=== PATIENT | female | born 1965 | race African-American/Black ===

== ENCOUNTER 2016-10-19 13:32 | Emergency (ER) | payer OTHER ==
[2016-10-19 14:56] LABS: MCHC 32.9 g/dl (32.0-36.0); MEAN CELL VOLUME 103.4 fl (80-96); PLATELET COUNT 155 K/MM3 (134-434); RDW 14.3 % (11.6-15.6); WHITE BLOOD COUNT 4.6 K/mm3 (4.0-10.0)
[2016-10-19 15:20] VITALS: TEMP 97.8; BMI 25.4
[2016-10-19 15:34] LABS: PLATELET ESTIMATE ADEQUATE (NORMAL)
[2016-10-19 15:36] LABS: URINE MARIJUANA THC NEGATIVE ng/ml (CUTOFF=50)
--- NOTE | 2016-10-19 15:38 | PDOC ---
History of Present Illness - History of Present Illness Initial Comments: 10/19/16 15:42 The patient is a 50 year old female with a past medical hx of asthma, anemia, hypercholesteremia, anxiety who presents to the ED via EMS for evaluation of a possible cocaine overdose. Per EMS, patient was found unresponsive this morning and her family called EMS. The family reports the patient used cocaine last night. EMS states patient was found awake, alert, and responsive on the scene. Patient states she woke up at 0930 this morning and went to get dressed. She reports she remembers having a headache, and that was the last thing she remembers. The patient states she has no complaints at this time and feels fine. The patient denies chest pain, SOB The patient denies fever, chills The patient denies nausea, vomiting, diarrhea Allergies: NKDA Surgical: Gastric bypass, cholecystectomy PCP: Dr. Tala Almeida <Glenda Groves - Last Filed: 10/19/16 15:45> - General History Source: Patient, EMS, Family Exam Limitations: No Limitations <Jena Loya - Last Filed: 10/22/16 10:31> - General Chief Complaint: Substance Abuse Stated Complaint: SYNCOPE Time Seen by Provider: 10/19/16 13:56 Past History <Glenda Groves - Last Filed: 10/19/16 15:45> - Past Medical History Anemia: Yes Asthma: Yes Cancer: No Cardiac Disorders: No CVA: No COPD: No CHF: No Dementia: No Diabetes: No GI Disorders: No Disorders: No HTN: No Hypercholesterolemia: Yes Kidney Stones: No Liver Disease: No Psychiatric Problems: Yes (ANXIETY. DEPRESSION. SUBSTANCE ABUSE.) Suicide Attempt (Hx): No Seizures: Yes Thyroid Disease: No - Surgical History Abdominal Surgery: Yes (GASTRIC BYPASS SX 2001) Appendectomy: No Cardiac Surgery: No Cholecystectomy: Yes () Lung Surgery: No Neurologic Surgery: No Orthopedic Surgery: No - Reproductive History PID: No - Immunization History Immunization Up to Date: Yes - Psycho/Social/Smoking Cessation Hx Anxiety: Yes Suicidal Ideation: No Smoking Status: Yes Smoking History: Current every day smoker Have you smoked in the past 12 months: Yes Number of Cigarettes Smoked Daily: 3 Cigars Per Day: 0 Information on smoking cessation initiated: No 'Breaking Loose' booklet given: 03/10/16 Hx Alcohol Use: No Drug/Substance Use Hx: No Substance Use Type: Alcohol Hx Substance Use Treatment: Yes (IN/OUTPT) <Jena Loya - Last Filed: 10/22/16 10:31> - Past Medical History Allergies/Adverse Reactions: Allergies Allergy/AdvReac Type Severity Reaction Status Date / Time No Known Allergies Allergy Verified 10/19/16 15:15 Home Medications: Ambulatory Orders Gabapentin [Neurontin -] 300 mg PO BID 04/28/15 Albuterol Sulfate Inhaler - [Ventolin HFA Inhaler -] 2 inh PO Q4H PRN 07/15/15 Escitalopram Oxalate [Lexapro -] 20 mg PO DAILY #30 tablet 07/17/15 Quetiapine Fumarate [Seroquel -] 300 mg PO HS #30 tablet 07/17/15 Topiramate [Topamax -] 100 mg PO BID #60 tablet 07/17/15 Zolpidem Tartrate [Ambien] 10 mg PO HS #14 tablet 11/09/15 Cyclobenzaprine HCl [Flexeril -] 10 mg PO TID PRN 04/01/16 Nitrofurantoin Monohyd/M-Cryst [Macrobid -] 100 mg PO BID #14 capsule 07/15/16 Review of Systems - Review of Systems Able to Perform ROS?: Yes Comments:: 10/19/16 15:42 GENERAL/CONSTITUTIONAL: No: fever, chills, weakness, loss of appetite. HEAD, EYES, EARS, NOSE AND THROAT: No: change in vision, ear pain, discharge, sore throat, throat swelling. CARDIOVASCULAR: No: chest pain, lightheadedness, palpitations, syncope RESPIRATORY: No: cough, shortness of breath, wheezing, hemoptysis, stridor. GASTROINTESTINAL: No: nausea, vomiting, abdominal cramping, diarrhea, rectal bleeding, constipation. GENITOURINARY: No: dysuria, hematuria, frequency, urgency, flank pain. MUSCULOSKELETAL: No: back pain, neck pain, joint pain, muscle swelling or pain SKIN: No: lesions, pallor, rash or easy bruising. NEUROLOGIC: No: headache, vertigo, paresthesias, weakness <Glenda Groves - Last Filed: 10/19/16 15:45> *Physical Exam - Vital Signs Last Vital Signs Temp Pulse Resp BP Pulse Ox 97.8 F 108 H 16 114/85 100 10/19/16 13:38 10/19/16 13:38 10/19/16 13:38 10/19/16 13:38 10/19/16 13:38 - Physical Exam Comments: 10/19/16 15:43 GENERAL: The patient is in no acute distress. HEAD: Normal with no signs of trauma. EYES: PERRLA, EOMI, sclera anicteric, conjunctiva clear. ENT: Ears normal, nares patent, oropharynx clear without exudates. Moist mucous membranes. NECK: Normal range of motion, supple without lymphadenopathy, JVD, or masses. LUNGS: Breath sounds equal, clear to auscultation bilaterally. No wheezes, and no crackles. HEART:Regular rate and rhythm, normal S1 and S2 without murmur, rub or gallop. ABDOMEN: Soft, nontender, normoactive bowel sounds. No guarding, no rebound. EXTREMITIES: Normal range of motion, no edema. No clubbing or cyanosis. No erythema, or tenderness. NEUROLOGICAL: Cranial nerves II through XII grossly intact. Normal speech. No focal neurological deficits. MUSCULOSKELETAL: Back nontender to palpation, no CVA tenderness SKIN: Warm, Dry, normal turgor, no rashes or lesions noted. <Glenda Groves - Last Filed: 10/19/16 15:45> - Vital Signs Last Vital Signs Temp Pulse Resp BP Pulse Ox 97.8 F 108 H 16 114/85 100 10/19/16 13:38 10/19/16 13:38 10/19/16 13:38 10/19/16 13:38 10/19/16 13:38 <Jena Loya - Last Filed: 10/22/16 10:31> Heart Score/ECG Review #1 ECG reviewed & interpreted by me at: 15:49 10/19/16 15:49 Twelve-lead EKG was performed and reviewed by me. There is normal sinus rhythm with a tachycardiac rate 114ms. The axis is normal. The intervals are normal - pr:162ms, QRS:76ms, QTc:482ms. There are no ST elevations or depressions. T waves nml <Jena Loya - Last Filed: 10/22/16 10:31> ED Treatment Course - LABORATORY CBC & Chemistry Diagram: 10/19/16 14:30 10/19/16 14:30 - ADDITIONAL ORDERS Additional order review: Laboratory Results 10/19/16 10/19/16 10/19/16 14:30 14:30 14:30 Sodium Cancelled Potassium Cancelled Chloride Cancelled Carbon Dioxide Cancelled Anion Gap Cancelled BUN Cancelled Creatinine Cancelled Creat Clearance w eGFR Cancelled Random Glucose Cancelled Calcium Cancelled Total Bilirubin Cancelled AST Cancelled ALT Cancelled Alkaline Phosphatase Cancelled Creatine Kinase Cancelled Troponin I Cancelled Total Protein Cancelled Albumin Cancelled Opiates Screen Negative Methadone Screen Negative Barbiturate Screen Negative Phencyclidine Screen Negative Ur Amphetamines Screen Negative MDMA (Ecstasy) Screen Negative Benzodiazepines Screen Negative Cocaine Screen Positive U Marijuana (THC) Screen Negative Alcohol, Quantitative 194.1 H* 10/19/16 14:30 RBC 3.94 MCV 103.4 H MCHC 32.9 RDW 14.3 MPV 9.0 Neutrophils % 27.0 L D Lymphocytes % 60.0 H Monocytes % 5.0 <Glenda Groves - Last Filed: 10/19/16 15:45> - LABORATORY CBC & Chemistry Diagram: 10/19/16 14:30 10/19/16 16:49 - ADDITIONAL ORDERS Additional order review: Laboratory Results 10/19/16 10/19/16 10/19/16 14:30 14:30 14:30 Sodium Cancelled Potassium Cancelled Chloride Cancelled Carbon Dioxide Cancelled Anion Gap Cancelled BUN Cancelled Creatinine Cancelled Creat Clearance w eGFR Cancelled Random Glucose Cancelled Calcium Cancelled Total Bilirubin Cancelled AST Cancelled ALT Cancelled Alkaline Phosphatase Cancelled Creatine Kinase Cancelled Troponin I Cancelled Total Protein Cancelled Albumin Cancelled Opiates Screen Negative Methadone Screen Negative Barbiturate Screen Negative Phencyclidine Screen Negative Ur Amphetamines Screen Negative MDMA (Ecstasy) Screen Negative Benzodiazepines Screen Negative U Marijuana (THC) Screen Negative Alcohol, Quantitative 194.1 H* 10/19/16 14:30 RBC 3.94 MCV 103.4 H MCHC 32.9 RDW 14.3 MPV 9.0 Neutrophils % 27.0 L D Lymphocytes % 60.0 H Monocytes % 5.0 <Jena Loya - Last Filed: 10/22/16 10:31> Medical Decision Making - Medical Decision Making 10/19/16 15:37 A portion of this note was documented by scribe services under my direction. I have reviewed the details of the note, within reason, and agree with the documentation with the following case summary and management plan written by me. Nursing documentation reviewed and incorporated into medical decision making 10/19/16 15:51 This is a 50 yo F with a history of chronic back pain, h/o anemia who presents to the ER via EMS Call from family was due to difficulty arousing patient and concern about "Cardiac arrest" Upon EMS arrival, pt was not in cardiac arrest Pt was sleeping Per family members, pt had done cocaine last night Pt denies using cocaine, states that IF she had cocaine, it was slipped into something she ate Pt has no complaints now Does complain of her chronic joint pain Pt denies trauma Pt states she had 1/2 of a beer today Will do: EKG Labs Will continuously monitor Pt requesting something to eat (tolerated sandwich, requesting something better) 10/19/16 16:01 Laboratory Tests 10/19/16 10/19/16 10/19/16 14:30 14:30 14:30 WBC 4.6 Hgb 13.4 Hct 40.7 Plt Count 155 Neutrophils % 27.0 L D Lymphocytes % 60.0 H Monocytes % 5.0 Reactive Lymphocytes 8 Macrocytosis 3+ Cocaine Screen Positive Alcohol, Quantitative 194.1 H* Chemistries hemolyzed Resent Pt signed out to Dr Haile <Jena Loya - Last Filed: 10/22/16 10:31> *DC/Admit/Observation/Transfer - Attestations Scribe Attestion: 10/19/16 15:43 Documentation prepared by Glenda Groves, acting as medical artist for Jena Loya MD/. <Glenda Groves - Last Filed: 10/19/16 15:45> <Jena Loya - Last Filed: 10/22/16 10:31> Diagnosis at time of Disposition: Alcohol intoxication - Discharge Dispostion Disposition: AGAINST MEDICAL ADVICE Condition at time of disposition: Stable - Referrals Referrals: Lindsey Almeida MD [Primary Care Provider] -
--- NOTE | 2016-10-19 16:07 | EKG ---
Test Reason : Blood Pressure : / mmHG Vent. Rate : 114 BPM Atrial Rate : 114 BPM P-R Int : 162 ms QRS Dur : 076 ms QT Int : 350 ms P-R-T Axes : 063 038 051 degrees QTc Int : 482 ms SINUS TACHYCARDIA POSSIBLE LEFT ATRIAL ENLARGEMENT SEPTAL INFARCT (CITED ON OR BEFORE 15-JUL-2016) ABNORMAL ECG WHEN COMPARED WITH ECG OF 15-JUL-2016 19:15, NO SIGNIFICANT CHANGE WAS FOUND Confirmed by RICARDO THRASHER MD ([id number]) on 10/19/2016 4:07:10 PM Referred By: Confirmed By:RICARDO THRASHER MD
[2016-10-19 16:51] VITALS: BP 115/87; PULSE 91
[2016-10-19] MEDS ORDERED: IBUPROFEN 800 MG/8 ML IJ IVPB ONE (17:04)
[2016-10-19] MEDS ORDERED: IBUPROFEN 600 MG TABLET (FP) PO ONE (17:13)
[2016-10-19 19:00] LABS: ALBUMIN 3.3 g/dl (3.4-5.0); ANION GAP 12 (8-16); CALCIUM 8.1 mg/dL (8.5-10.1); CO2 19 mmol/L (21-32); GLUCOSE,RANDOM 208 mg/dL (74-106)
[2016-10-19 19:06] LABS: ALK PHOS 171 U/L (45-117); BILIRUBIN,TOTAL 0.3 mg/dL (0.2-1.0); CREATININE 0.8 mg/dL (0.55-1.02); SGOT/AST 273 U/L (15-37); SGPT/ALT 171 U/L (12-78); TROPONIN I < 0.02 ng/ml (0.00-0.05)
--- NOTE | 2016-10-19 19:59 | PDOC ---
*Physical Exam - Vital Signs Last Vital Signs Temp Pulse Resp BP Pulse Ox 97.8 F 91 H 16 115/87 100 10/19/16 13:38 10/19/16 16:49 10/19/16 16:49 10/19/16 16:49 10/19/16 16:49 ED Treatment Course - LABORATORY CBC & Chemistry Diagram: 10/19/16 14:30 10/19/16 16:49 - ADDITIONAL ORDERS Additional order review: Laboratory Results 10/19/16 10/19/16 10/19/16 16:49 14:30 14:30 Sodium 141 Potassium 4.1 Chloride 110 H Carbon Dioxide 19 L Anion Gap 12 BUN 14 D Creatinine 0.8 Creat Clearance w eGFR > 60 Random Glucose 208 H Calcium 8.1 L Total Bilirubin 0.3 AST 273 H D ALT 171 H D Alkaline Phosphatase 171 H D Creatine Kinase 517 H D CK-MB (CK-2) 1.309 Troponin I < 0.02 Total Protein 7.0 Albumin 3.3 L Opiates Screen Negative Methadone Screen Negative Barbiturate Screen Negative Phencyclidine Screen Negative Ur Amphetamines Screen Negative MDMA (Ecstasy) Screen Negative Benzodiazepines Screen Negative Cocaine Screen Positive U Marijuana (THC) Screen Negative Alcohol, Quantitative 194.1 H* 10/19/16 14:30 Sodium Cancelled Potassium Cancelled Chloride Cancelled Carbon Dioxide Cancelled Anion Gap Cancelled BUN Cancelled Creatinine Cancelled Creat Clearance w eGFR Cancelled Random Glucose Cancelled Calcium Cancelled Total Bilirubin Cancelled AST Cancelled ALT Cancelled Alkaline Phosphatase Cancelled Creatine Kinase Cancelled CK-MB (CK-2) Troponin I Cancelled Total Protein Cancelled Albumin Cancelled Opiates Screen Methadone Screen Barbiturate Screen Phencyclidine Screen Ur Amphetamines Screen MDMA (Ecstasy) Screen Benzodiazepines Screen Cocaine Screen U Marijuana (THC) Screen Alcohol, Quantitative 10/19/16 14:30 RBC 3.94 MCV 103.4 H MCHC 32.9 RDW 14.3 MPV 9.0 Neutrophils % 27.0 L D Lymphocytes % 60.0 H Monocytes % 5.0 - Medications Given in the ED: ED Medications Discontinued Medications Generic Name Dose Route Start Last Admin Trade Name Freq PRN Reason Stop Dose Admin Ibuprofen 600 mg 10/19/16 17:04 10/19/16 17:29 Caldolor Injection - IVPB 10/19/16 17:05 600 mg ONCE ONE Administration Progress Note - Progress Note Progress Note: The patient was endorsed to me by Dr. Loya at 5 PM pending lab results. The patient was irritated because she had been poked numerous times for blood draws unsuccessfully. The blood was eventually drawn however the patient declined to stay for results of the tests. Please see AMA note. I did note that the patient' s initial alcohol level was 194 at approximately 12 noon today. At the time that the patient signed out AGAINST MEDICAL ADVICE, the patient was clinically sober, awake, alert and oriented 3 and ambulatory with a steady gait. *DC/Admit/Observation/Transfer Diagnosis at time of Disposition: Alcohol intoxication - Discharge Dispostion Disposition: AGAINST MEDICAL ADVICE Condition at time of disposition: Stable Admit: No - Referrals Referrals: Lindsey Almeida MD [Primary Care Provider] - - Patient Instructions - Post Discharge Activity
== END 2016-10-19 20:13 | disposition left against medical advice (07) ==
LOC: JER 13:32
PROC: 3E0333Z Introduction of Anti-inflammatory into Peripheral Vein, Percutaneous Approach (ICD-10-PCS; principal; 2016-10-19)
DX: F10.120 Alcohol abuse with intoxication, uncomplicated (principal); Y90.6 Blood alcohol level of 120-199 mg/100 ml; J45.909 Unspecified asthma, uncomplicated; F41.8 Other specified anxiety disorders; E78.00 Pure hypercholesterolemia, unspecified; D64.9 Anemia, unspecified
CPT/HCPCS: 36415; 80053; 80307; 82550; 82553; 84484; 85025; 93005; 93010; 96374; 99284-25